=== PATIENT | female | born 1995 | race African-American/Black ===

== ENCOUNTER 2018-10-30 20:41 | Emergency (ER) | payer OTHER ==
[2018-10-30] MEDS ORDERED: MORPHINE SULFATE 10 MG/ML INJ IV ONE (22:53)
[2018-10-30] MEDS ORDERED: ONDANSETRON HCL INJ/PF 4 MG/2 ML SDV IV ONE (22:53)
[2018-10-30] MEDS ORDERED: NORMAL SALINE 1000 ML 1,000 ML IV ONE (22:54)
--- NOTE | 2018-10-30 22:56 | ER Document Report ---
ED GI/ - General Chief Complaint: Abdominal Pain Stated Complaint: ABDOMINAL PAIN Time Seen by Provider: 10/30/18 22:46 Notes: Patient is a 23-year-old female that comes to the emergency department for chief complaint of upper abdominal pain. She states the pain is in her left upper abdomen, started yesterday, seen at [facility], started on Prilosec, she states that she vomited 3 times a day and cannot eat or drink. Pain is worse with eating or drinking. She denies hematemesis. She has had normal bowel movements. She denies any surgeries or daily medications. She does drink alcohol weekly and drank over the weekend, denies smoking, denies recreational drugs. Patient is active duty. TRAVEL OUTSIDE OF THE [place] IN LAST 30 DAYS: No - Related Data Allergies/Adverse Reactions: No Known Allergies Allergy (Unverified 10/31/18 00:27) Past Medical History - General Information source: Patient - Social History Smoking Status: Never Smoker Frequency of alcohol use: Social Drug Abuse: None Lives with: Alone Family History: Reviewed & Not Pertinent - Medical History Medical History: Negative Surgical Hx: Negative - Immunizations Immunizations up to date: Yes Hx Diphtheria, Pertussis, Tetanus Vaccination: Yes Review of Systems - Review of Systems Constitutional: No symptoms reported EENT: No symptoms reported Cardiovascular: No symptoms reported Respiratory: No symptoms reported Gastrointestinal: See HPI Genitourinary: No symptoms reported Female Genitourinary: No symptoms reported Musculoskeletal: No symptoms reported Skin: No symptoms reported Hematologic/Lymphatic: No symptoms reported Neurological/Psychological: No symptoms reported Physical Exam - Vital signs Vitals: Temp Pulse Resp BP Pulse Ox 98.4 F 90 16 139/79 H 100 10/30/18 20:46 10/30/18 20:46 10/30/18 20:46 10/30/18 20:46 10/30/18 20:46 - Notes Notes: GENERAL: Alert, interacts well. Patient fidgets and appears mildly uncomfortable. HEAD: Normocephalic, atraumatic. EYES: Pupils equal, round, and reactive to light. Extraocular movements intact. ENT: Oral mucosa moist, tongue midline. Oropharynx unremarkable. Airway patent. Nares patent, no nasal septal hematoma, TM's intact. NECK: Full range of motion. Supple. Trachea midline. LUNGS: Clear to auscultation bilaterally, no wheezes, rales, or rhonchi. No respiratory distress. HEART: Regular rate and rhythm. No murmur ABDOMEN: Pain with palpation of the left upper quadrant, this is very specific, no severe guarding or rigidity. Remaining abdomen is completely benign. Normal bowel sounds. GENITOURINARY: Deferred EXTREMITIES: Moves all 4 extremities spontaneously. No edema, normal radial and dorsalis pedis pulses bilaterally. No cyanosis. BACK: no cervical, thoracic, lumbar midline tenderness. No saddle anesthesia, normal distal neurovascular exam. NEUROLOGICAL: Alert and oriented x3. Normal speech. [cranial nerves II through XII grossly intact]. PSYCH: Normal affect, normal mood. SKIN: Warm, dry, normal turgor. No rashes or lesions noted. Course - Re-evaluation Re-evalutation: Patient only in the left upper quadrant pain on exam. Reporting vomiting with eating. No hematemesis or hematochezia. Unremarkable vital signs. Patient does not appear to be in distress but does appear to be mildly uncomfortable. After IV fluids, pain medication, nausea medication, patient is doing much better. CBC unremarkable except for microcytic anemia which I discussed with patient. Chemistry unremarkable, lipase is not elevated. Urinalysis unremarkable except for some ketones, there are some white blood cells but equal amounts of squamous epithelials, patient with no urinary symptoms or flank pain. Patient tolerated Pepcid, Carafate, Phenergan without any difficulty. She drink fluids without any difficulty. She states she feels much improved from prior. Presentation is most consistent with gastritis, patient admits to regular alcohol, constant spicy food, I suspect this is probably the cause. I discussed recommendations, medications, follow-up, and return precautions in detail. Patient states understanding and agreement with plan. Stable at time of disch arge. - Vital Signs Vital signs: Temp Pulse Resp BP Pulse Ox 98.2 F 73 16 112/73 98 10/31/18 02:28 10/31/18 02:28 10/31/18 02:28 10/31/18 02:28 10/31/18 02:28 - Laboratory Result Diagrams: 10/30/18 23:19 10/30/18 23:19 Laboratory results interpreted by me: 10/30/18 10/31/18 23:19 00:20 Hgb 10.8 L Hct 33.2 L MCV 76 L MCH 24.6 L RDW 15.7 H Plt Count 458 H Urine Ketones 20 H Ur Leukocyte Esterase MODERATE H Discharge - Discharge Clinical Impression: Left upper quadrant pain Nausea and vomiting Qualifiers: Vomiting type: unspecified Vomiting Intractability: non-intractable Qualified Code(s): R11.2 - Nausea with vomiting, unspecified Condition: Stable Disposition: HOME, SELF-CARE Additional Instructions: Your symptoms and examination indicate gastritis/esophagitis (inflammation of your upper gastrointestinal tract). Take Zofran for nausea, take Carafate and Pepcid as prescribed to help treat this, you can take additional Rolaids, Tums, Maalox, etc. if needed. You can take Tylenol for pain. Avoid NSAIDs, alcohol, smoking, caffeine, spicy food. Start with clear fluids, progress to bland diet. You were given a dose of opiate pain medication during your time in the Emergency Department. Follow-up with primary care for additional evaluation and treatment including possible H. pylori testing. Return if you worsen including uncontrolled vomiting, vomiting blood, black stools, severe pain, fever of 100.4 or greater, or any other concerning or worsening symptoms. Prescriptions: Famotidine [Pepcid 20 mg Tablet] 20 mg PO BID #14 tablet Ondansetron [Zofran Odt 4 mg Tablet] 1 - 2 tab PO Q4H PRN #15 tab.rapdis PRN Reason: For Nausea/Vomiting Sucralfate [Carafate 1 gm Tablet] 1 gm PO QID #20 tablet
[2018-10-30 23:28] LABS: ABSOLUTE LYMPHOCYTES (AUTO) 1.7 10^3/uL (0.5-4.7); ABSOLUTE MONOCYTES (AUTO) 0.6 10^3/uL (0.1-1.4); ABSOLUTE NEUT (AUTO) 3.7 10^3/uL (1.7-8.2); BASOPHILS % (AUTO) 0.7 % (0-2); EOSINOPHILS % (AUTO) 0.8 % (0-6); HEMATOCRIT 33.2 % (36.0-47.0); HEMOGLOBIN 10.8 g/dL (12.0-15.5); MEAN CORPUSCULAR HEMOGLOBIN 24.6 pg (27.0-33.4); MEAN CORPUSCULAR HGB CONC 32.6 g/dL (32.0-36.0); MEAN CORPUSCULAR VOLUME 76 fl (80-97); MONOCYTES % (AUTO) 9.8 % (3-13); PLATELET COUNT 458 10^3/uL (150-450); RED BLOOD COUNT 4.39 10^6/uL (3.72-5.28); RED CELL DISTRIBUTION WIDTH 15.7 % (11.5-14.0); SEGMENTED NEUTROPHILS % (AUTO) 60.7 % (42-78); TOTAL CELLS COUNTED % (AUTO) 100 %; WHITE BLOOD COUNT 6.1 10^3/uL (4.0-10.5)
[2018-10-30 23:44] LABS: ALANINE AMINOTRANSFERASE 15 U/L (9-52); ALKALINE PHOSPHATASE 59 U/L (38-126); ANION GAP 9 (5-19); ASPARTATE AMINO TRANSFERASE 23 U/L (14-36); BILIRUBIN,DIRECT 0.1 mg/dL (0.0-0.4); BILIRUBIN,TOTAL 0.5 mg/dL (0.2-1.3); BLOOD UREA NITROGEN 16 mg/dL (7-20); CALCIUM 9.4 mg/dL (8.4-10.2); CARBON DIOXIDE 25 mmol/L (22-30); CHLORIDE 105 mmol/L (98-107); GLUCOSE 90 mg/dL (75-110); LIPASE 135.4 U/L (23-300); POTASSIUM 3.9 mmol/L (3.6-5.0); SODIUM 138.8 mmol/L (137-145); TOTAL PROTEIN 7.4 g/dL (6.3-8.2)
[2018-10-31 00:42] LABS: APPEARANCE,URINE SLIGHTLY-CLOUDY; BILIRUBIN,URINE NEGATIVE (NEGATIVE); COLOR,URINE YELLOW; GLUCOSE, URINE NEGATIVE (NEGATIVE); KETONES,URINE 20 mg/dL (NEGATIVE); LEUKOCYTE ESTERASE,URINE MODERATE (NEGATIVE); NITRITE,URINE NEGATIVE (NEGATIVE); PROTEIN,URINE NEGATIVE (NEGATIVE); URINE SPECIFIC GRAVITY 1.016; UROBILINOGEN,URINE NEGATIVE mg/dL (<2.0)
[2018-10-31] MEDS ORDERED: FAMOTIDINE 20 MG TABLET PO ONE (00:53)
[2018-10-31] MEDS ORDERED: PROMETHAZINE HCL 25 MG TABLET PO ONE (00:53)
[2018-10-31] MEDS ORDERED: SUCRALFATE 1 GM TABLET PO ONE (00:53)
[2018-10-31 02:28] VITALS: BP 112/73
== END 2018-10-31 02:28 | disposition home or self-care (01) ==
LOC: ER 20:41
DX: R10.12 Left upper quadrant pain (principal); R11.2 Nausea with vomiting, unspecified
CPT/HCPCS: 99284; 96361; 96374; 96375; 36415; 83690; 85025; 81025; 80053; 81001; J2270; J2405; J7030